=== PATIENT | female | born 1955 | race Caucasian/White ===

== ENCOUNTER 2023-09-24 12:27 | Outpatient (CLI) | payer MEDICARE ==
--- NOTE | 2023-09-28 11:59 | Mammography Report ---
BILATERAL DIGITAL DIAGNOSTIC MAMMOGRAM 3D/2D WITH EXAGGERATED CC: 09/24/2023 CLINICAL: Provider requested diagnostic; History of abnormal mammograms. Comparison is made to exams dated: 12/17/2021 mammogram, 05/02/2020 mammogram, 04/22/2019 mammogram, 2017 mammogram, 04/13/2017 mammogram, and 09/10/2016 mammogram - [facility]. Both breasts are heterogeneously dense, which may obscure small masses (category c / 51-75% glandular tissue). There is a biopsy clip in the right breast. No significant masses, calcifications, or other findings are seen in either breast. There has been no significant interval change. IMPRESSION: BENIGN There is no mammographic evidence of malignancy. A 1 year screening mammogram is recommended. Based on the Tyrer Cuzick model (a risk assessment model) the patient's lifetime risk is 10.2% and he r 10 year risk is 5.1%. According to the ACR, ACS, and NCCN guidelines, an annual breast MRI exam jaja ng with mammogram is recommended if the patient's lifetime risk is 20% or greater. This exam was interpreted at Station ID: [id number]. NOTE: For mammograms, a report in lay terms will be sent to the patient. Approximately 15% of breast malignancies will not be visualized mammographically. In the management of a palpable breast mass, a negative mammogram must not discourage biopsy of a clinically suspicious lesion. Electronically Signed By: Antonio ceja/bowen:09/24/2023 13:17:58 letter sent: No_Letter ACR BI-RADS Category 2: Benign Finding(s) 3342F PARENCHYMAL PATTERN: (D) - The breast(s) demonstrate(s) heterogeneously dense fibroglandular partarasy ma. BI-RADS CATEGORY: (2) - 2 Mammogram [id number] 1 year screening LATERALITY: (B)
== END 2023-09-24 12:28 | disposition home or self-care (01) ==
LOC: DI 12:27
PROVIDERS: ATTEND Family Medicine
DX: R92.8 Other abnormal and inconclusive findings on diagnostic imaging of breast (principal); R92.333 Mammographic heterogeneous density, bilateral breasts

== ENCOUNTER 2023-11-13 07:48 | Day surgery (SDC) | payer MEDICARE ==
[2023-11-13] MEDS: LACTATED RINGERS 1,000 ML IV ONE ×2 (07:51→10:14)
[2023-11-13] MEDS ORDERED: LIDOCAINE-MPF 2% 5 ML VIAL ONE (08:45)
[2023-11-13] MEDS ORDERED: PROPOFOL 500 MG/50 ML 500 MG/50 ML VIAL ONE (08:45)
--- NOTE | 2023-11-13 09:14 | ANESTHESIA ---
Pre-Anesthesia VS, & Labs - Diagnosis history of colon polyps - Procedure colonoscopy Vital Signs: Temp Pulse Resp BP Pulse Ox O2 Flow Rate 36.1 C L 79 13 115/60 98 11/13/23 07:55 11/13/23 07:55 11/13/23 07:55 11/13/23 07:55 11/13/23 07:55 Height: 5 ft 7 in Weight (kg): 62.2 kg Body Mass Index: 21.4 BMI Classification: Normal - NPO >8 hours - Is Patient ?: No Home Medications and Allergies Home Medications: Ambulatory Orders Biotin 1 tab PO DAILY 11/12/23 Cholecalciferol [Vitamin D3] 25 mcg PO DAILY 11/12/23 Dextromethorphan HBr/Bupropion [Auvelity ER 45-105 mg Tablet] 1 each PO BID 10/16 04/09 Krill/[place]-3/Dha/Epa/Lipids [Krill Oil 350 mg Softgel] 1 each PO DAILY 11/12/23 Methylphenidate HCl [Concerta] 54 mg PO DAILY 05/07/23 Biotin 1 tab PO DAILY 11/12/23 Cholecalciferol [Vitamin D3] 25 mcg PO DAILY 11/12/23 Dextromethorphan HBr/Bupropion [Auvelity ER 45-105 mg Tablet] 1 each PO BID 11/12/23 Krill/[place]-3/Dha/Epa/Lipids [Krill Oil 350 mg Softgel] 1 each PO DAILY 11/12/23 Allergies/Adverse Reactions: Allergies Allergy/AdvReac Type Severity Reaction Status Date / Time Sulfa (Sulfonamide Allergy Unknown Verified 11/12/23 13:42 Antibiotics) neomycin AdvReac Unknown Verified 11/12/23 13:42 Anes History & Medical History - Anesthetic History Anesthesia Complications: reports: No previous complications - Medical History Cardiovascular: reports: None Pulmonary: reports: None Gastrointestinal: reports: None Urinary: reports: None Neuro: reports: None Musculoskeletal: reports: None Endocrine/Autoimmune: reports: None Blood Disorders: reports: None Skin: reports: None Smoking Status: Current every day smoker (2 cigarettes per day) Psychosocial: reports: Alcohol (2 drinks per day) History of Cancer?: No - Surgical History Eyes Ears Nose Throat (EENT): reports: Cataracts Gynecologic: reports: section, Other Orthopedic: reports: Arthroscopic surgery, Carpal Tunnel surgery Exam General: Alert, Oriented x3, Cooperative, No acute distress Dental: WNL Mouth Openin Fingerbreadth Neck Mobility: Normal Mallampati classification: III Thyromental Distance: 4-6 cm Mental/Cognitive Status: Alert/Oriented X3, Normal for patient Plan Anesthesia Type: General, Total IV Consent for Procedure(s) Verified and Reviewed: Yes Code Status: Attempt Resuscitation ASA classification: 2-Mild systemic disease Is this case an emergency?: No
[2023-11-13] MEDS ORDERED: MIDAZOLAM 2 MG/2 ML VIAL ONE (09:43)
[2023-11-13 10:26] VITALS: O2SAT 97
[2023-11-13 10:36] VITALS: BP 131/75
--- NOTE | 2023-11-13 13:13 | ANESTHESIA POST OP EVALUATION ---
Anesthesia Post Eval - Post Anesthesia Eval Vitals: Last Vital Signs Temp 37.0 C 11/13/23 10:28 Pulse 75 11/13/23 10:28 Resp 16 11/13/23 10:28 BP 131/75 H 11/13/23 10:28 Pulse Ox 97 11/13/23 10:28 O2 Flow Rate CV Function Including HR & BP: Stable Pain Control: Satisfactory Nausea & Vomiting: Negative Mental Status: Baseline Respiratory Status: Airway Patent Hydration Status: Satisfactory Anesthesia Complications: None
== END 2023-11-13 07:49 | disposition home or self-care (01) ==
LOC: SDS 07:48
PROVIDERS: ATTEND Surgery
PROC: 0DBK8ZZ Excision of Ascending Colon, Via Natural or Artificial Opening Endoscopic (ICD-10-PCS; principal; 2023-11-13 09:30)
DX: Z12.11 Encounter for screening for malignant neoplasm of colon (principal); D12.2 Benign neoplasm of ascending colon; K57.30 Diverticulosis of large intestine without perforation or abscess without bleeding; F17.210 Nicotine dependence, cigarettes, uncomplicated
CPT/HCPCS: 45380; J7120